=== PATIENT | male | born 1965 | race Caucasian/White ===

== ENCOUNTER → 2025-01-21 | Day surgery (SDC) | payer OTHER ==
[~2025-01-21] VITALS: Ht 177.8 cm; Wt 84.4 kg
[~2025-01-21] MED LIST: ACETAMINOPHEN 100 ML IV ONE; Dexamethasone Sodium Phospha 4 MG/ML VIAL IV ONE; Lactated Ringer's Solution 1,000 ML IV ONE; Lidocaine Hydrochloride 2% 5 ML SDV IM ONE; Lidocaine Hydrochloride 30 ML VIAL ONE; Midazolam Hydrochloride 2 MG/2 ML VIAL IV ONE; Ondansetron Hydrochloride 4 MG/2 ML VIAL IV ONE; PROPOFOL 200 MG/20 ML VIAL IV ONE; SEVOFLURANE 250 ML BOT INH ONE; SODIUM CHLORIDE 0.9% 100 ML IV ONE; ZESTRIL40 MG PO; ceFAZolin sodium 2GM/20ML IV ONE; ceFAZolin sodium/sodium chlor 20 ML IV ONE
[2025-01-21 07:39] VITALS: BP 128/74
[2025-01-21 08:22] VITALS: BP 87/45
[2025-01-21 08:37] VITALS: BP 89/48
[2025-01-21 08:52] VITALS: BP 89/42
[2025-01-21 09:07] VITALS: BP 104/53
[2025-01-21 09:18] VITALS: BP 105/56
== END | disposition home or self-care (01) ==
LOC: SDC 01-18 09:30
PROVIDERS: ATTEND Surgery
DX: L81.9 Disorder of pigmentation, unspecified (principal); L85.9 Epidermal thickening, unspecified; L90.5 Scar conditions and fibrosis of skin; I10 Essential (primary) hypertension; F17.200 Nicotine dependence, unspecified, uncomplicated; F12.90 Cannabis use, unspecified, uncomplicated; Z88.8 Allergy status to other drugs, medicaments and biological substances; Z98.890 Other specified postprocedural states; Z91.030 Bee allergy status; Z79.899 Other long term (current) drug therapy